=== PATIENT | male | born 1960 | race Caucasian/White ===

== ENCOUNTER 2025-09-04 12:44 | Outpatient (CLI) | payer MEDICARE, OTHER ==
[2025-09-04 13:35] LABS: Hematocrit 37.9 % (38.8-50.0); Hemoglobin 13.6 g/dL (13.5-17.5)
[2025-09-04 14:26] LABS: Anion Gap 13 mmol/L (10-20); BUN (Urea Nitrogen) 9 mg/dL (8.4-25.7); Calc. Creatinine Clearance 0 mL/min (70-130); Calcium 9.2 mg/dL (7.8-10.44); Carbon Dioxide 24 mmol/L (23-31); Chloride 101 mmol/L (98-107); Glucose 89 mg/dL (80-115); Potassium 4.4 mmol/L (3.5-5.1); Sodium 134 mmol/L (136-145)
== END 2025-09-04 12:45 | disposition home or self-care (01) ==
LOC: CSHLAB 12:44
PROVIDERS: ATTEND Otolaryngology Plastic Surgery within the Head & Neck
DX: Z01.818 Encounter for other preprocedural examination (principal); C44.319 Basal cell carcinoma of skin of other parts of face
CPT/HCPCS: 80048; 85014; 85018; 93005; 93010

== ENCOUNTER 2025-09-11 09:00 | Day surgery (SDC) | payer MEDICARE, OTHER ==
[2025-09-04 13:15] VITALS: BMI 25.5
[2025-09-11] MEDS ORDERED: SUGAMMADEX SODIUM 200 MG/2 ML VIAL ONE (10:37)
[2025-09-11] MEDS ORDERED: Rocuronium Bromide 10 MG/ML (10ML VIAL) ONE (10:37)
[2025-09-11] MEDS ORDERED: PROPOFOL 20 ML ONE ×2 (10:37→13:29)
[2025-09-11] MEDS ORDERED: Lidocaine 1% PF 5 ML VIAL ONE (10:37)
[2025-09-11] MEDS ORDERED: CEFAZOLIN 1 GM VIAL ONE (12:35)
== END 2025-09-11 15:27 | disposition home or self-care (01) ==
LOC: CSHSDC 09:00
PROVIDERS: ATTEND Otolaryngology Plastic Surgery within the Head & Neck
PROC: 0HX1XZZ Transfer Face Skin, External Approach (ICD-10-PCS; principal; 2025-09-11)
DX: C44.319 Basal cell carcinoma of skin of other parts of face (principal); I10 Essential (primary) hypertension; F41.9 Anxiety disorder, unspecified; F17.200 Nicotine dependence, unspecified, uncomplicated; Z88.0 Allergy status to penicillin; Z88.8 Allergy status to other drugs, medicaments and biological substances; Z79.899 Other long term (current) drug therapy
CPT/HCPCS: 14041; J0690; J1100; J2704; 88305; 88331; 88332